=== PATIENT | female | born 1965 | race Caucasian/White ===

== ENCOUNTER 2023-09-14 15:17 | Emergency (ER) | payer OTHER, SELFPAY ==
[2023-09-14 15:44] VITALS: BP 114/80; PULSE 87; RESP 16; TEMP 36.1; O2SAT 96; BMI 39.5
--- NOTE | 2023-09-14 16:47 | ED_ITS ---
HPI - General Adult General Time Seen by Provider: 16:47 Date Seen: 09/14/23 Chief complaint: Diarrhea Stated complaint: Ref by urgent-stomach pain, diahrea since 08/23 Time Seen by Provider: 09/14/23 16:45 Source: patient and RN notes reviewed Mode of arrival: ambulatory Limitations: no limitations History of Present Illness HPI narrative: This 58-year-old female is referred by a a virtual visit provider for concern of diarrhea and abdominal pain. She initially was sick on August 23, started with nausea vomiting and diarrhea. She had low-grade fevers the 1st 3 days. Did eventually go into cough symptoms. She saw her provider on August 31, was given an inhaler and cough medicine. The did not do any testing. She did feel better for while, stools never returned to normal formed stools but more runny. They were very watery initially. She was never on any antibiotics. Yesterday, started with really watery stool again. She is having fecal urgency and some incontinence. No blood ever in the stools. She has had a colonoscopy before. No prior abdominal surgeries. She is feeling lower abdominal cramping before she has to defecate, had to leave work today as she had episode of incontinence, could not make it to the bathroom in time. She is also feeling upper abdominal pain starting with this yesterday too. No current fevers. She has taken 3 Imodium after arriving home, has slowed on the stool, does not feel like it has increased her abdominal symptoms. Related Data Home Medications Medication Instructions Recorded Confirmed albuterol sulfate 90 mcg/actuation inhalation 09/14/23 aerosol inhaler furosemide 20 mg tablet 20 mg PO BID 09/14/23 09/14/23 omeprazole 20 mg capsule,delayed 20 mg PO BID 09/14/23 09/14/23 release Allergies Allergy/AdvReac Type Severity Reaction Status Date / Time No Known Drug Allergies Allergy Verified 09/14/23 15:36 Review of Systems Status of ROS: Reports: 6 or more systems reviewed and unremarkable except as noted in History and below [facility] Social History Smoking Status: Never smoker Do you use any of these nicotine containing products: None How often do you have a drink containing alcohol: never AUDIT-C Alcohol total score: 0 Non-prescribed substance use: denies use Exam Const: Vital Signs, click to edit/add: Vital Signs - 24 hr 09/14/23 15:44 09/14/23 19:00 Temperature 96.9 F L Pulse Rate [Pulse Oximeter] 87 79 Respiratory Rate 16 18 Blood Pressure [Ri ght Upper Arm] 114/80 107/72 Pulse Oximetry 96 97 Oxygen Delivery Me thod Room Air Room Air This 58-year-old female is alert, interactive, no apparent distress. Pupils equal round reactive to light sclera clear. Face atraumatic come speech normal. Lungs are clear, good air entry, no wheezing or crackles. CV regular rate rhythm, no murmur, normal S1-S2, no S3-S4. Abdomen is obese but soft, no bowel sounds are hurt but she has no significant tenderness. Body habitus precludes definitive examination for any masses organomegaly. She is certainly not tender at this time. She is ambulatory in the ED of her own accord. Skin visualized without rash. Documenting provider has reviewed patient's vital signs: yes Course Course ED Course: Reviewed with patient that given her history, will proceed with CT imaging with IV contrast and obtain labs. She was anticipating this from her discussion with the urgent care telehealth visit. Will also order stool cultures, C difficile and ova and parasites but do not anticipate that she is likely to produce stool here given her Imodium. Will initiate some IV fluids. Infectious etiology including such things is viruses, C difficile other infectious etiologies will be considered. It could be atypical presentation of diverticulitis although do not think this is likely. It could be colitis, other intra-abdominal pathology. CT imaging should help elucidate that. Will see if her labs are showing any concerning abnormalities. Right now she is afebrile and hemodynamically stable. Reevaluation(s) Time of Reevaluation #1: 19:16 Reevaluation #1: Have reviewed with Mariaa her CT report with the incidental possible left lung findings, liver and left adrenal incidental findings that are going to need outpatient follow up. She doesn't think that she has ever had a CT of her abdomen before. Reviewed that we will be getting portable chest x-ray to further delineate any lung issue. Would favor not giving her antibiotics with diarrhea and normal white blood count. She still has not felt any urge for defecation, feels that the imodium is still working. Time of Reevaluation #2: 20:10 Reevaluation #2: Chest x-ray essentially showing the same, reviewed with patient there is no significant change from the CT. Absolutely favor not treating with antibiotics given she has no fever, laboratory evaluation is not pointing to an acute infectious etiology. Antibiotics could certainly worsen diarrhea. We will send her home, have her collect the stool studies, follow up in clinic. She is in agreement with the plan. Vital Signs Vital signs: Initial Vital Signs Temperature 96.9 F L 09/14/23 15:44 Temperature Source Temporal Artery Scan 09/14/23 15:44 Pulse Rate 87 09/14/23 15:44 Respiratory Rate 16 09/14/23 15:44 Blood Pressure 114/80 09/14/23 15:44 Blood Pressure Mean 91 09/14/23 15:44 Blood Pressure Position Sitting 09/14/23 15:44 Pulse Oximetry 96 09/14/23 15:44 Oxygen Delivery Method Room Air 09/14/23 15:44 Vital Signs Temperature 96.9 F L 09/14/23 15:44 Pulse Rate 87 09/14/23 15:44 Respiratory Rate 16 09/14/23 15:44 Blood Pressure 114/80 09/14/23 15:44 Pulse Oximetry 96 09/14/23 15:44 Oxygen Delivery Method Room Air 09/14/23 15:44 Temperature 96.9 F L 09/14/23 15:44 Pulse Rate 79 09/14/23 19:00 Respiratory Rate 18 09/14/23 19:00 Blood Pressure 107/72 09/14/23 19:00 Pulse Oximetry 97 09/14/23 19:00 Oxygen Delivery Method Room Air 09/14/23 19:00 Medications Administered Medications: Discontinued Medications Generic Name Dose Route Start Last Admin Trade Name Freq PRN Reason Stop Dose Admin Sodium Chloride 1,000 mls @ 500 mls/hr 09/14/23 16:56 09/14/23 18:40 0.9 % Sodium Chloride 1000 Ml IV 09/14/23 18:55 Infused .Q2H MICKIE Infusion Medical Decision Making Lab Data Lab results reviewed: Yes I reviewed the patient's lab results Labs: Lab Results 09/14/23 09/14/23 09/14/23 Range/Units 17:10 17:10 17:10 WBC 5.03 (4.50-11.00) K/uL RBC 4.87 (4.00-5.20) m/uL Hgb 14.6 (12.0-16.0) gm/dL Hct 44.9 (33.0-51.0) % MCV 92 (80-100) fL MCH 30 (26-34) pg MCHC 33 (32-36) gm/dL RDW Coeff of Annel 13.4 (11.5-15.5) % Plt Count 324 (140-440) K/uL Neut % (Auto) 49.9 (42.0-72.0) % Lymph % (Auto) 40.0 (20-44) % Borden % (Auto) 8.9 (0.0-11.0) % Eos % (Auto) 0.8 (0.0-7.0) % Baso % (Auto) 0.2 (0.0-3.0) % Neut # (Auto) 2.51 (1.7-7.0) K/uL Lymph # (Auto) 2.01 (0.90-2.90) K/uL Borden # (Auto) 0.40 (0.00-0.90) K/UL Eos # (Auto) 0.04 (0.00-0.50) K/uL Baso # (Auto) 0.01 (0.00-0.30) K/uL Abs Immat Gran (auto) 0.01 (0.00-0.30) K/uL Imm/Tot Granulo (auto) 0.2 % Sodium 138 (135-149) mmol/L Potassium 3.9 (3.6-5.1) mmol/L Chloride 105 (96-114) mmol/L Carbon Dioxide 22 (20-32) mmol/L Anion Gap 11 (7-15) mEq/L BUN 10 (7-30) mg/dL Creatinine 0.6 (0.5-1.5) mg/dL Estimated Creat Clear 98.18 Estimated GFR 103 ml/min Glucose 108 (60-115) mg/dL Lactate 0.7 (0.5-1.9) mmol/L Calcium 9.1 (8.4-10.6) mg/dL Total Bilirubin 0.8 (0.1-1.5) mg/dL Direct Bilirubin Cancelled 0.2 AST 43 H (12-35) U/L ALT 45 H (4-35) U/L Alkaline Phosphatase 67 (40-150) U/L C-Reactive Protein Cancelled 0.8 Total Protein 8.1 (6.0-8.3) g/dL Albumin 4.7 (3.3-5.0) g/dL Lipase 76 (23-300) U/L Imaging Data CT scan - abdomen: Attestation: I have reviewed the pertinent imaging results. My impression: I did visualize her abdominal CT. I do not see anything within the ball on my preliminary review to suggest any etiology. Certainly need to await Radiology over-read. Radiologist's impression: Patient: MARIAA CHRISTINE Facility:?[facility] Patient ID:?[id number] Site Patient ID:?[id number]. Site :?[id number] Study:?CT Abdomen/Pelvis [id number]/7/2024 5:56:21 PM Ordering Physician:Toño Jc Final Report: INDICATION: Diarrhea, abdominal pain. TECHNIQUE: CT abdomen and pelvis acquired with 123 mL Isovue 370 IV contrast. COMPARISON: None available. FINDINGS: Lower chest: Patchy airspace opacities in the left lower lobe. No focal consolidation. Partially visualized bilateral breast implants. Liver: Indeterminate 0.7 cm hypodense lesion in segment 7 (series 2, image 40). Gallbladder and bile ducts: Unremarkable. Pancreas: Unremarkable. Spleen: Unremarkable. Adrenal glands: 0.8 cm nodule in the left adrenal gland (series 2, image 43), too small to characterize. Kidneys: Kidneys enhance symmetrically, without hydronephrosis. Retroperitoneum: No lymphadenopathy. Bowel and mesentery: Bowel is not obstructed. No significant ascites. No pneumoperitoneum. Scattered colonic diverticulosis, without evidence of acute diverticulitis. Normal appendix. Tiny hiatal hernia. Bladder: Unremarkable for degree of distension. Reproductive organs: Unremarkable. Pelvic lymph nodes: No lymphadenopathy. Vessels: Few scattered atherosclerotic calcifications. Abdominal wall: No acute abdominal wall abnormality. Bones: Multilevel degenerative changes of the spine. Bones are osteopenic. IMPRESSION: 1. No acute intra-abdominal abnormality identified. 2. Patchy pulmonary airspace opacities in the left lower lobe, may reflect atelectasis versus infectious etiology. 3. Indeterminate 0.7 cm hypodense lesion in segment 7 of the liver. Indeterminate 0.8 cm left adrenal nodule. Comparison with prior studies to assess for stability is recommended if available, otherwise nonemergent follow- up with MRI is recommended. Please note that all CT scans at this facility use dose modulation, iterative reconstruction, and/or weight-based dosing when appropriate to reduce radiation dose to as low as reasonably achievable. Dictated by Tammy Chao MD @ 09/14/2023 6:52:21 PM (Electronic Signature) Chest x-ray: Attestation: I have reviewed the pertinent imaging results. Radiologist's impression: Patient: MARIAA CHRISTINE Facility:?[facility] Patient ID:?[id number] Site Patient ID:?[id number]. Site :?[id number] Study:?XRay Chest PORTABLE-09/14/2023 7:31:29 PM Ordering Physician:?Rosie Jc Final Report: INDICATIONS: Recent URI. Abnormal CT. TECHNIQUE: Chest 1 portable view. COMPARISON: CT abdomen and pelvis same day. FINDINGS: No pneumothorax or pleural effusion. Left basilar opacities are similar in appearance. Lungs are otherwise clear. Cardiac and mediastinal contours are within normal limits. Upper abdomen and osseous structures as imaged show no acute abnormality. IMPRESSION: Left basilar atelectasis or airspace disease, unchanged. Dictated by Ld Bradley MD @ 09/14/2023 8:03:47 PM (Electronic Signature) Discharge Plan Discharge Clinical Impression: Diarrhea Qualifiers: Diarrhea type: unspecified type Qualified Code(s): R19.7 - Diarrhea, unspecified Patient Disposition: Home, Self-Care Condition: Stable Instructions: Acute Diarrhea (ED), Nutrition Tips for Relief of Diarrhea (ED) Additional Instructions: Need to collect stool samples for further testing, can return them to our lab or contact your clinic to see if they can run them. Drink plenty of fluids to stay hydrated. If the stool tests are negative and you continue with diarrhea, next step is to have a colonoscopy done which would be ordered through clinic provider. If you develop bloody diarrhea, have severe abdominal pain or fever with diarrhea, need to be re-evaluated. Otherwise, need to get scheduled with primary provider for recheck and to have them schedule abdominal MRI as suggested in CT report (take CT report to follow up visit). Activity Level: Activity as Tolerated Prescriptions: No Action omeprazole 20 mg capsule,delayed release(DR/EC) 20 mg PO BID furosemide 20 mg tablet 20 mg PO BID albuterol sulfate 90 mcg/actuation HFA aerosol inhaler inhalation Follow Up/Referrals: Provider,Not a Local [Primary Care Provider] - Stand Alone Forms: [email or web address] Info Instructions
--- NOTE | 2023-09-14 16:54 | CRLHL7_ITS ---
For Patients: As a result of the Century Cures Act, medical imaging exams and procedure reports are released immediately into your electronic medical record. You may view this report before your referring provider. If you have questions, please contact your health care provider. INDICATION: Diarrhea, abdominal pain. TECHNIQUE: CT abdomen and pelvis acquired with 123 mL Isovue 370 IV contrast. COMPARISON: None available. FINDINGS: Lower chest: Patchy airspace opacities in the left lower lobe. No focal consolidation. Partially visualized bilateral breast implants. Liver: Indeterminate 0.7 cm hypodense lesion in segment 7 (series 2, image 40). Gallbladder and bile ducts: Unremarkable. Pancreas: Unremarkable. Spleen: Unremarkable. Adrenal glands: 0.8 cm nodule in the left adrenal gland (series 2, image 43), too small to characterize. Kidneys: Kidneys enhance symmetrically, without hydronephrosis. Retroperitoneum: No lymphadenopathy. Bowel and mesentery: Bowel is not obstructed. No significant ascites. No pneumoperitoneum. Scattered colonic diverticulosis, without evidence of acute diverticulitis. Normal appendix. Tiny hiatal hernia. Bladder: Unremarkable for degree of distension. Reproductive organs: Unremarkable. Pelvic lymph nodes: No lymphadenopathy. Vessels: Few scattered atherosclerotic calcifications. Abdominal wall: No acute abdominal wall abnormality. Bones: Multilevel degenerative changes of the spine. Bones are osteopenic. IMPRESSION: 1. No acute intra-abdominal abnormality identified. 2. Patchy pulmonary airspace opacities in the left lower lobe, may reflect atelectasis versus infectious etiology. 3. Indeterminate 0.7 cm hypodense lesion in segment 7 of the liver. Indeterminate 0.8 cm left adrenal nodule. Comparison with prior studies to assess for stability is recommended if available, otherwise nonemergent follow-up with MRI is recommended. Please note that all CT scans at this facility use dose modulation, iterative reconstruction, and/or weight-based dosing when appropriate to reduce radiation dose to as low as reasonably achievable. Dictated by Tammy Chao MD @ 09/14/2023 6:52:21 PM (Electronically Signed)
[2023-09-14] MEDS: 0.9 % SODIUM CHLORIDE 1000 ml 1,000 ML 500 ML IV (17:00)
[2023-09-14 17:14] LABS: Lactate* 0.7 mmol/L (0.5-1.9)
[2023-09-14 17:18] LABS: Basophils Absolute Auto 0.01 K/uL (0.00-0.30); Basophils Percent Auto 0.2 % (0.0-3.0); Eosinophils Absolute Auto 0.04 K/uL (0.00-0.50); Eosinophils Percent Auto 0.8 % (0.0-7.0); Hematocrit 44.9 % (33.0-51.0); Hemoglobin* 14.6 gm/dL (12.0-16.0); Immature Granulocytes Abs Auto 0.01 K/uL (0.00-0.30); Immature Granulocytes Pct Auto 0.2 %; Lymphocytes Absolute Auto 2.01 K/uL (0.90-2.90); Mean Corpuscular HGB Conc 33 gm/dL (32-36); Mean Corpuscular Hemoglobin 30 pg (26-34); Mean Corpuscular Volume 92 fL (80-100); Monocytes Percent Auto 8.9 % (0.0-11.0); Neutrophils Absolute Auto 2.51 K/uL (1.7-7.0); Neutrophils Percent Auto 49.9 % (42.0-72.0); Platelet Count* 324 K/uL (140-440); RDW Coefficient of Variation % 13.4 % (11.5-15.5); Red Blood Count 4.87 m/uL (4.00-5.20); White Blood Count* 5.03 K/uL (4.50-11.00)
[2023-09-14 17:23] LABS: Slide Review Reflex No
[2023-09-14 17:47] LABS: Albumin* 4.7 g/dL (3.3-5.0); Chloride* 105 mmol/L (96-114)
[2023-09-14 17:48] LABS: Potassium* 3.9 mmol/L (3.6-5.1); Sodium* 138 mmol/L (135-149)
[2023-09-14 17:50] LABS: Creatinine* 0.6 mg/dL (0.5-1.5); Est. Creatinine Clearance* 98.18; Estimated Glomerular Filt Rate 103 ml/min
[2023-09-14 17:51] LABS: Alanine Aminotransferase* 45 U/L (4-35); Alkaline Phosphatase* 67 U/L (40-150); Anion Gap 11 mEq/L (7-15); Aspartate Amino Transferase* 43 U/L (12-35); Bilirubin Direct* 0.2 mg/dL (0.0-0.5); Bilirubin Total* 0.8 mg/dL (0.1-1.5); Blood Urea Nitrogen* 10 mg/dL (7-30); Calcium* 9.1 mg/dL (8.4-10.6); Carbon Dioxide* 22 mmol/L (20-32); Glucose* 108 mg/dL (60-115); Lipase* 76 U/L (23-300); Total Protein* 8.1 g/dL (6.0-8.3)
[2023-09-14 17:53] LABS: C Reactive Protein* 0.8 mg/dL (0.5-1.0)
[2023-09-14 19:00] VITALS: BP 107/72; PULSE 79; RESP 18; O2SAT 97
--- NOTE | 2023-09-14 19:17 | CRLHL7_ITS ---
For Patients: As a result of the Cures Act, medical imaging exams and procedure reports are released immediately into your electronic medical record. You may view this report before your referring provider. If you have questions, please contact your health care provider. INDICATIONS: Recent URI. Abnormal CT. TECHNIQUE: Chest 1 portable view. COMPARISON: CT abdomen and pelvis same day. FINDINGS: No pneumothorax or pleural effusion. Left basilar opacities are similar in appearance. Lungs are otherwise clear. Cardiac and mediastinal contours are within normal limits. Upper abdomen and osseous structures as imaged show no acute abnormality. IMPRESSION: Left basilar atelectasis or airspace disease, unchanged. Dictated by Ld Bradley MD @ 09/14/2023 8:03:47 PM (Electronically Signed)
== END 2023-09-14 20:18 | disposition home or self-care (01) ==
PROVIDERS: Emergency Provider Family Medicine
DX: R19.7 Diarrhea, unspecified (principal)
CPT/HCPCS: 36415; 71045; 74177; 80053; 82248; 83605; 83690; 85025; 86140; 87045; 87046; 87177; 87209; 87427; 87493; 99284; 99285; J7030; Q9967